=== PATIENT | female | born 1995 | race Caucasian/White ===

== ENCOUNTER 2019-05-04 13:00 | Emergency (ER) | payer BC ==
[2019-05-04] MEDS ORDERED: PHENAZOPYRIDINE HCL 200 MG TABLET PO ONE (13:24)
--- NOTE | 2019-05-04 13:28 | ER Document Report ---
HPI - HPI Patient complains to provider of: Dysuria Time Seen by Provider: 05/04/19 13:21 Onset: This morning Onset/Duration: Sudden Quality of pain: Burning Pain Level: 2 Context: This 23-year-old female presents emergency department with complaints of urinary frequency urgency with decreased output that started this morning when she woke up. Reports she has a history of UTIs in her provider wants her to go see a urologist. Patient is visiting the area. She denies fever vomiting diarrhea. Denies abdominal pain. Denies vaginal discharge. She reports her urine smelled fairly strong this morning Associated Symptoms: None Exacerbated by: Denies Relieved by: Denies Similar symptoms previously: Yes Recently seen / treated by doctor: No - REPRODUCTIVE LMP: 04/20/19 Reproductive: DENIES: : Past Medical History - General Information source: Patient Last Menstrual Period: 04/20/19 - Social History Smoking Status: Never Smoker Chew tobacco use (# tins/day): No Frequency of alcohol use: Occasional Drug Abuse: None Occupation: student Family History: None Patient has suicidal ideation: No Patient has homicidal ideation: No - Medical History Medical History: Negative Surgical Hx: Negative Vertical Provider Document - CONSTITUTIONAL Agree With Documented VS: Yes Exam Limitations: No Limitations General Appearance: WD/WN, No Apparent Distress - INFECTION CONTROL TRAVEL OUTSIDE OF THE [place] IN LAST 30 DAYS: No - HEENT HEENT: Atraumatic, Normocephalic. negative: Conjuctival Injection - NECK Neck: Normal Inspection, Supple. negative: Lymphadenopathy-Left, Lymphadenopathy-Right - RESPIRATORY Respiratory: Breath Sounds Normal, No Respiratory Distress - CARDIOVASCULAR Cardiovascular: Regular Rate, Regular Rhythm - GI/ABDOMEN Gastrointestinal: Abdomen Soft, Abdomen Non-Tender - BACK Back: negative: CVA Tenderness-Right, CVA Tenderness-Left - MUSCULOSKELETAL/EXTREMETIES Musculoskeletal/Extremeties: NANCY HARPER - NEURO Level of Consciousness: Awake, Alert, Appropriate Motor/Sensory: No Motor Deficit - DERM Integumentary: Warm, Dry Course - Re-evaluation Re-evalutation: 05/04/19 13:27 23-year female [facility] emergency department with complaints of urinary frequency urgency and decreased output. Reports symptoms started today. Reports her urine smells really strong. Reports it feels like another urinary tract infection. She reports she was treated for UTI in February. She reports she gets UTIs frequently and her primary care provider wants her to see a urologist. 05/04/19 15:50 UA shows large leukocytes with bacteria and WBCs. Patient was treated with Macrobid. She was instructed to monitor her temperature return to ED for fever back pain concerns. She was also instructed on prescription for Pyridium and Macrobid. Instructed to follow-up with her primary care provider and urologist. She verbalized understanding to all instructions. Urine Color YELLOW 05/04/19 13:29 Urine Appearance CLOUDY 05/04/19 13:29 Urine pH 8.0 (5.0-9.0) 05/04/19 13:29 Ur Specific Dalton 1.005 05/04/19 13:29 Urine Protein 30 mg/dL (NEGATIVE) H 05/04/19 13:29 Urine Glucose (UA) NEGATIVE mg/dL (NEGATIVE) 05/04/19 13:29 Urine Ketones NEGATIVE mg/dL (NEGATIVE) 05/04/19 13:29 Urine Blood MODERATE (NEGATIVE) H 05/04/19 13:29 Urine RBC (Auto) 155 /HPF 05/04/19 13:29 - Vital Signs Vital signs: Temp Pulse Resp BP Pulse Ox 97.4 F 83 20 145/74 H 99 05/04/19 13:04 05/04/19 13:04 05/04/19 13:04 05/04/19 13:04 05/04/19 13:04 Discharge - Discharge Clinical Impression: Dysuria UTI (urinary tract infection) Qualifiers: Urinary tract infection type: site unspecified Hematuria presence: with hematuria Qualified Code(s): N39.0 - Urinary tract infection, site not specified Condition: Stable Disposition: HOME, SELF-CARE Instructions: Nitrofurantoin ([facility]), Urinary Anesthetic Agent ([facility]), Urinary Tract Infection ([facility]) Additional Instructions: *You have been evaluated for pain while voiding, UTI *Take medication as prescribed *Push fluids *Follow up with your primary care provider within 1 week for recheck *Return to ED for worsening condition, changes, needs Monitor your blood pressure. Your blood pressure was elevated today. This may be because you were anxious, in pain or because you need medication. It is important to follow up with your primary care provider for full evaluation. Prescriptions: Nitrofurantoin/Nitrofuran Mac [Macrobid 100 mg Capsule] 100 mg PO BID #20 capsule Phenazopyridine HCl [Pyridium 200 mg Tablet] 200 mg PO TID #15 tablet Forms: Elevated Blood Pressure
[2019-05-04 13:45] LABS: APPEARANCE,URINE CLOUDY; BILIRUBIN,URINE NEGATIVE (NEGATIVE); COLOR,URINE YELLOW; GLUCOSE, URINE NEGATIVE (NEGATIVE); KETONES,URINE NEGATIVE (NEGATIVE); PROTEIN,URINE 30 mg/dL (NEGATIVE); URINE SPECIFIC GRAVITY 1.005; UROBILINOGEN,URINE NEGATIVE mg/dL (<2.0)
[2019-05-04] MEDS ORDERED: NITROFURANTOIN MONOHYD/M-CRYST 100 MG CAPSULE PO ONE ×2 (14:13→14:44)
[2019-05-04 14:54] VITALS: BP 115/60
== END 2019-05-04 15:14 | disposition home or self-care (01) ==
LOC: ER 13:00
DX: N39.0 Urinary tract infection, site not specified (principal); R31.9 Hematuria, unspecified
CPT/HCPCS: 99283; 81025; 81001; J3490; J8499